=== PATIENT | male | born 1970 | race Caucasian/White ===

== ENCOUNTER 2017-03-22 16:32 | Emergency (ER) | payer SELFPAY ==
[~2017-03-22] VITALS: Ht 208.3 cm; Wt 153.2 kg
[~2017-03-22 16:32] MED LIST: ALBU0.8317 AEROSOL; ASPI-611 PO; CLIN300C86 PO; HYDR-4074 PO; LISI-126 PO; ONDA-55 PO; ORPH100T2 PO; TELM80TA4 PO
[2017-03-22 16:34] VITALS: Ht 208.3 cm; Wt 153.2 kg
--- OUTSIDE RECORDS SUMMARY | 2017-03-22 16:37 | XMS REPORT | Continuity of Care Document ---
Author Author [facility] LIVE Organization [facility] LIVE Address Unknown Phone Unavailable Support Name Relationship Address Phone ORIANA MCLAUGHLIN II, MD Caregiver [address] [place] [phone] NEHEMIAH PEREZ MD Caregiver [address] [place] [phone] SREEKANTH TADEO Next Of Kin [address] [id number] Insurance Providers Payer Name Policy Number Subscriber Name Relationship Workers Compensation [id number] Kevin Tadeo 20 Self Problems Medical Problems Problem Onset Date Status Hand pain Unknown Active Hand pain Unknown Active Medications Medication Dose Route Sig Days/Qty Instructions Order Date Discontinued Date Status Telmisartan 80 Mg PO DAILY 06/18/13 Active Lisinopril 20 Mg PO DAILY 06/18/13 Active Aspirin 81 Mg PO DAILY 06/18/13 Active Albuterol 2.5 Mg AEROSOL NEEDED 06/18/13 Active Social History Social History Problem Response Recorded Date/Time Smoking Status Current every day smoker 07/18/2014 7:33am Chewing Tobacco Status No 06/18/2013 6:15am Hx Substance Use No 07/18/2014 7:33am Hx Alcohol Use Y OCC 07/18/2014 7:33am Query Response Start Date Stop Date Smoking Status Current every day smoker Hospital Discharge Instructions No hospital discharge instructions. Plan of Care No plan of care. Functional Status Query Response Date Recorded Physical Hygiene Self July 18, 2014 7:33am Disabilities None July 18, 2014 7:33am Devices Used None July 18, 2014 7:33am Dressing Self July 18, 2014 7:33am Ambulation Self July 18, 2014 7:33am Diet Self July 18, 2014 7:33am Mental Status Alert Oriented July 18, 2014 8:06am Disabilities None July 18, 2014 7:33am Devices Used None July 18, 2014 7:33am Physical Hygiene Self July 18, 2014 7:33am Dressing Self July 18, 2014 7:33am Ambulation Self July 18, 2014 7:33am Diet Self July 18, 2014 7:33am Allergies, Adverse Reactions, Alerts Allergen Type Severity Reaction Status Last Updated Penicillin Allergy Unknown Active 06/18/13 Immunizations No immunization records. Vital Signs Acute Vital Signs Vital Response Date/Time Temperature (Fahrenheit) 97.8 deg F (96.8 - 99.1) Temperature (Calculated Celsius) 36.38563 degrees C (36.0 - 37.3) Pulse Rate (adult) 109 bpm (60 - 100) Respiratory Rate 20 breaths/min (10 - 20) O2 Sat by Pulse Oximetry 93 % (90 - 100) Blood Pressure 139/67 mm Hg Height 6 ft 10 in Weight 317 lb Body Mass Index 33.0 kg/m^2 Results Test Source Date Result Interp. Ref. Range Comments Alanine Aminotransferase (ALT/SGPT) June 06, 2011 5:28pm 32 U/L N 21- 72 Albumin June 06, 2011 5:28pm 5.1 G/DL H 3.5-5.0 Albumin/Globulin Ratio June 06, 2011 5:28pm 1.3 RATIO N 1.1-2.2 Alkaline Phosphatase June 06, 2011 5:28pm 96 U/L N 38-126 Anion Gap July 09, 2014 1:34pm 11 MEQ/L N 5-15 Aspartate Amino Transf (AST/SGOT) June 06, 2011 5:28pm 24 U/L N 17-59 BUN/Creatinine Ratio July 09, 2014 1:34pm 20 RATIO N 6-26 Basophils # (Auto) July 09, 2014 1:34pm 0.0 T/MM3 N 0-0.2 Basophils (%) (Auto) July 09, 2014 1:34pm 0.5 % N 0-2 Blood Urea Nitrogen July 09, 2014 1:34pm 22.0 MG/DL H 9-20 Calcium Level July 09, 2014 1:34pm 9.7 MG/DL N 8.4-10.2 Calculated Osmolality July 09, 2014 1:34pm 274 MOSM/KG N 261-280 Carbon Dioxide Level July 09, 2014 1:34pm 26 MEQ/L N 22-30 Chloride Level July 09, 2014 1:34pm 104 MEQ/L N 98-107 Creatinine July 09, 2014 1:34pm 1.1 MG/DL N 0.8-1.5 Eosinophils # (Auto) July 09, 2014 1:34pm 0.3 T/MM3 N 0-0.5 Eosinophils (%) (Auto) July 09, 2014 1:34pm 3.3 % N 0-4 Globulin June 06, 2011 5:28pm 4.0 G/DL H 2.4-3.6 Glucose Level July 09, 2014 1:34pm 92 MG/DL N 75-110 Hematocrit July 09, 2014 1:34pm 39.6 % L 41-53 Hemoglobin July 09, 2014 1:34pm 13.0 GM/DL L 13.5-17.5 Lymphocytes # (Auto) July 09, 2014 1:34pm 2.4 T/MM3 N 1-4.8 Lymphocytes (%) (Auto) July 09, 2014 1:34pm 28.2 % N 23-45 Mean Corpuscular Hemoglobin July 09, 2014 1:34pm 29.7 UUG N 26-34 Mean Corpuscular Hemoglobin Concent July 09, 2014 1:34pm 32.8 GM/DL N 31-37 Mean Corpuscular Volume July 09, 2014 1:34pm 90.4 UM3 N 80-100 Mean Platelet Volume July 09, 2014 1:34pm 10.5 UM3 N 9.4-12.4 Monocytes # (Auto) July 09, 2014 1:34pm 0.5 T/MM3 N 0-0.8 Monocytes (%) (Auto) July 09, 2014 1:34pm 5.3 % N 0-9.0 Neutrophils # (Auto) July 09, 2014 1:34pm 5.3 T/MM3 N 1.8-7.7 Neutrophils (%) (Auto) July 09, 2014 1:34pm 62.2 % N 33-66 Platelet Count July 09, 2014 1:34pm 205 T/MM3 N 130-400 Potassium Level July 09, 2014 1:34pm 4.4 MEQ/L N 3.6-5 Prostate Specific Antigen June 06, 2011 5:28pm 0.98 NG/ML N 0-4.0 RDW Standard Deviation July 09, 2014 1:34pm 46.3 FL N 36.9-50.2 Red Blood Count July 09, 2014 1:34pm 4.38 M/MM3 L 4.50-5.90 Sodium Level July 09, 2014 1:34pm 141 MEQ/L N 134-144 Thyroid Stimulating Hormone (TSH) June 06, 2011 5:28pm 2.88 MIU/L N 0.47-4.68 Total Bilirubin June 06, 2011 5:28pm 0.50 MG/DL N 0.20-1.30 Total Protein June 06, 2011 5:28pm 9.1 G/DL H 6.3-8.2 Urine Bacteria June 06, 2011 5:28pm 1+ H - Urine Bilirubin June 06, 2011 5:28pm Negative - Urine Blood June 06, 2011 5:28pm Negative - Urine Collection Type June 06, 2011 5:28pm Voided - Urine Color June 06, 2011 5:28pm Yellow - Urine Culture Indicated June 06, 2011 5:28pm Cult ordered & setup - Urine Glucose (UA) June 06, 2011 5:28pm Negative - Urine Ketones June 06, 2011 5:28pm Trace H - Urine Leukocyte Esterase June 06, 2011 5:28pm Negative - Urine Mucus June 06, 2011 5:28pm Present - Urine Nitrite June 06, 2011 5:28pm Negative - Urine Protein June 06, 2011 5:28pm Negative - Urine RBC June 06, 2011 5:28pm 1-3 /HPF - Urine Specific [place] June 06, 2011 5:28pm 1.025 - Urine Squamous Epithelial Cells June 06, 2011 5:28pm Many - Urine Turbidity June 06, 2011 5:28pm Clear - Urine Urobilinogen June 06, 2011 5:28pm Normal EU/DL - Urine WBC June 06, 2011 5:28pm 3-5 /HPF - Urine pH June 06, 2011 5:28pm 5.0 - White Blood Count July 09, 2014 1:34pm 8.6 T/MM3 N 4.5-11.0 Chemistry Specimen Hemolysis July 09, 2014 1:34pm < 15 0-25 0-25 : No Hemolysis.26-70: Slight Hemolysis - can falsely elevate K and Urine Protein. 71-285: Moderate Hemolysis - can falsely elevate K, Troponin I, CA 19-9, PTH, CSF GLucose, and Urine Protein, and can falsely decrease Phenytoin. 286-999: Gross Hemolysis - can falsely elevate K, Troponin I, CA 19-9, PTH, CSF Glucose, and Urine Protine, and can falsely decrease Phenytoin. Recommend specimen recollection. Lab Scanned Report July 09, 2014 7:27pm LAB TEST FORM REQUEST [id number] - Turbidity July 09, 2014 1:34pm < 20 0-20 Glomerular Filtration Rate Calc July 09, 2014 1:34pm 74 - Immature Granulocyte # (Auto) July 09, 2014 1:34pm 0.04 T/MM3 H 0.00-0.03 Immature Granulocyte % (Auto) July 09, 2014 1:34pm 0.5 % N 0.0-0.5 Icterus Index July 09, 2014 1:34pm < 2 0-7 Urine Culture Urine, Clean Catch Voided June 06, 2011 5:28pm Strep Agalactiae - (Group B) Name: KEVIN TADEO Unit #: [id number] : 1970 Sex: M Loc / Svc: [facility] DOS: 06/23/14 Signed Report #: [id number] DIAGNOSTIC IMAGING REPORT TYPE OF EXAM: MRI WRIST LEFT W/O CONTRAST Dictated By: ALEXANDREA FREEMAN MD INDICATION: ITS.REASON: 719.43 PAIN MRI WRIST LEFT W/O CONTRAST: Comparison: None Technique: Multiplanar multisequence MR imaging of the left wrist was performed without contrast. Findings: Senior Technical Trainer radiograph of the skull was performed to exclude a metallic foreign body within the orbits. No metallic foreign bodies are identified projecting over the orbits. Prior dental restorations. There is motion artifact present. The carpal tunnel appears normal. Median nerve is unremarkable. Flexor and extensor tendons are intact. There is edema within the distal scaphoid bone suggesting a nondisplaced fracture. A discrete fracture line is not clearly seen. The remainder of the bone marrow signal intensity is normal. Motion artifact limits most of the sequences. Triangular fibrocartilage appears grossly intact. Scapholunate interval is widened and the scapholunate ligament is probably torn although again motion artifact limits this evaluation. Lunotriquetral ligament appears intact. Impression: Probable tear of the scapholunate ligament with evidence of a nondisplaced fracture or bone contusion involving the distal pole of the scaphoid. . Procedures No known history of procedures. Encounters Encounter Location Date/Time Departed Emergency Room [facility] 07/18/14 7:29am Registered Clinic [facility] 07/09/14 1:17pm Registered Clinic [facility] 06/23/14 6:58am Recent Diagnosis
--- OUTSIDE RECORDS SUMMARY | 2017-03-22 16:37 | XMS REPORT | Continuity of Care Document ---
Author Author [facility] Organization [facility] Address Unknown Phone Unavailable Support Name Relationship Address Phone MARCIN FOWLER APRN Caregiver [address] [place], [place] [phone] Unavailable SREEKANTH TADEO Next Of Kin [address] [place] [address] Insurance Providers Guarantor Kevin Tadeo Address [facility] [place] [address] Email DENIED/NO PORTAL Payer Self Pay Subscriber's Name GusKevin Blount Relationship 18 Self Problems Active Problems Medical Problem Onset Date Status Asthma Unknown Chronic Cast discomfort Unknown Acute Chest pain, rule out acute myocardial infarction Unknown Acute Diaphoresis Unknown Acute HTN (hypertension) Unknown Chronic Near syncope Unknown Acute Right-sided chest pain Unknown Acute Syncope Unknown Acute Past Problems Medical Problem Onset Date Abscess of skin Unknown Cellulitis of left ankle Unknown Hand pain Unknown Spider bite Unknown Medications Current Home Medications Medication Dose Units Route Directions Days Qty Instructions Start Date Albuterol (Ventolin) 2.5 Mg/3 Ml Inha 2.5 Mg Aerosol Tx. As Needed 06/18/13 Aspirin 81 Mg Tablet 81 Mg Oral Daily 06/18/13 Clindamycin Hcl 300 Mg Capsule 300 Mg Oral Four Times Daily 10 Days [address] Facundo [employer] [facility] [address] [facility] [phone] 07/13/16 Hydrocodone/Apap 7.5/325 Mg ([place] 7.5-325 Tablet) 1 Each Tablet 1 Tab Oral Every 6 Hours as needed for Pain 40 Tablet 01/28/16 Lisinopril 20 Mg Tablet 20 Mg Oral Daily 06/18/13 Ondansetron Hcl 4 Mg Tablet 4 Mg Oral Q6h/0300,0900,1500,2100 as needed for Nausea 30 Tablet 01/28/16 Orphenadrine Citrate 100 Mg Tablet.er 100 Mg Oral Every 12 Hours as needed for Spasms 14 Tablet 01/28/16 Telmisartan (Micardis) 80 Mg Tablet 80 Mg Oral Daily 06/18/13 Past Home Medications Medication Directions Ordered Status Acid Reflux Med , 01/27/16 Discontinued Antibiotic , 01/27/16 Discontinued Social History Social History Problem Response Recorded Date/Time Onset Date Status Chewing Tobacco Status No 06/18/2013 6:15am Not Applicable Not Applicable Hx Substance Use No 05/27/2016 12:06am Not Applicable Not Applicable Hx Alcohol Use Y OCC 05/27/2016 12:06am Not Applicable Not Applicable Has the pt used tobacco in the last 12 months No 01/28/2016 12:04am Not Applicable Not Applicable Tobacco Usage smoke 01/28/2016 8:47am Not Applicable Not Applicable Hospital Discharge Instructions Current inpatient/outpatient. Discharge instructions are currently unavailable. Plan of Care Current inpatient/outpatient. The plan of care is currently unavailable Functional Status No functional status results. Allergies, Adverse Reactions, Alerts Allergen Type Severity Reaction Status Last Updated Penicillin Allergy Unknown Active 07/13/16 Immunizations Query Response on File Recorded Date/Time Hx Influenza Vaccination No 01/28/16 12:04am Hx Pneumococcal Vaccination No 01/28/16 12:04am Hx Influenza Vaccination No 01/28/16 12:04am Vital Signs Acute Vital Signs Vital Response Date/Time Temperature (Fahrenheit) 97.9 deg F (96.8 - 99.1) 07/13/2016 5:18pm Temperature (Calculated Celsius) 36.26710 degrees C (36.0 - 37.3) 07/13/2016 5:18pm Pulse Rate (adult) 110 bpm (60 - 100) 07/13/2016 5:18pm Respiratory Rate 20 breaths/min (10 - 20) 05/27/2016 12:01am O2 Sat by Pulse Oximetry 96 % (90 - 100) 07/13/2016 5:18pm Blood Pressure 140/88 mm Hg 07/13/2016 5:18pm Height (Feet) 6 feet 05/27/2016 12:01am Height (Inches) 10.00 inches 05/27/2016 12:01am Weight (Kilograms) 146.600 kg 07/13/2016 5:18pm Body Mass Index (BMI) 33.0 05/27/2016 12:01am Results No known relevant diagnostic tests, laboratory data and/or discharge summary. Procedures No known history of procedures. Encounters Encounter Location Arrival/Admit Date Discharge/Depart Date Attending Provider Registered Clinic [facility] 07/13/16 6:47pm MARCIN FOWLER APRN Departed Emergency Room [facility] 07/13/16 5:11pm 07/13/16 6: 20pm MARCIN FOWLER APRN Departed Emergency Room [facility] 05/26/16 11:53pm 05/27/16 12: 37am ZIGGY MARADIAGA MD
[2017-03-22] MEDS ORDERED: NORMAL SALINE 1,000 ML IV ONE (16:47)
[2017-03-22 16:58] LABS: BASOPHILS # (AUTO) 0.1 T/MM3 (0-0.2); BASOPHILS % (AUTO) 0.5 % (0-2); EOSINOPHILS # (AUTO) 0.2 T/MM3 (0-0.5); EOSINOPHILS % (AUTO) 1.3 % (0-4); HCT - HEMATOCRIT 45.5 % (41-53); HGB - HEMOGLOBIN 15.5 GM/DL (13.5-17.5); IMMATURE GRANULOCYTE # (AUTO) 0.04 T/MM3 (0.00-0.03); IMMATURE GRANULOCYTE % (AUTO) 0.3 % (0.0-0.5); LYMPHOCYTES # (AUTO) 3.1 T/MM3 (1-4.8); LYMPHOCYTES % (AUTO) 23.7 % (23-45); MEAN CORPUSCULAR HGB 29.9 UUG (26-34); MEAN CORPUSCULAR HGB CONC(MCHC 34.1 GM/DL (31-37); MEAN CORPUSCULAR VOLUME 87.8 UM3 (80-100); MEAN PLATELET VOLUME 10.8 UM3 (9.4-12.4); MONOCYTES # (AUTO) 0.9 T/MM3 (0-0.8); MONOCYTES % (AUTO) 6.6 % (0-9.0); NEUTROPHILS #(AUTO)-ABSOLUTE 8.7 T/MM3 (1.8-7.7); NEUTROPHILS % (AUTO) 67.6 % (33-66); RED BLOOD COUNT 5.18 M/MM3 (4.50-5.90); WBC - WHITE BLOOD COUNT 12.9 T/MM3 (4.5-11.0)
[2017-03-22] MEDS ORDERED: DILTIAZEM 25mg/5ml INJECTION IV ONE ×2 (17:00→17:45)
[2017-03-22] MEDS ORDERED: NITROGLYCERIN 0.4 MG SUBLINGUAL TABLET SL PRN (17:00)
[2017-03-22] MEDS ORDERED: ASPIRIN 81 MG CHEWABLE TABLET PO ONE (17:00)
--- OUTSIDE RECORDS SUMMARY | 2017-03-22 17:01 | XMS REPORT | Continuity of Care Document ---
Author Author [facility] LIVE Organization [facility] LIVE Address Unknown Phone Unavailable Support Name Relationship Address Phone ORIANA MCLAUGHLIN II, MD Caregiver [address] [facility] [facility] [phone] NEHEMIAH PEREZ MD Caregiver [address] [place] [phone] SREEKANTH TADEO Next Of Kin [address] [id number] Insurance Providers Payer Name Policy Number Subscriber Name Relationship Workers Compensation [id number] Kevin Tadeo 20 Self Problems Medical Problems [...] F (96.8 - 99.1) Temperature (Calculated Celsius) 36.24012 degrees C (36.0 - 37.3) Pulse Rate [...] 2011 5:28pm 1-3 /HPF - Urine Specific [place] June 06, 2011 5:28pm 1.025 - Urine [...] 09, 2014 7:27pm LAB TEST FORM REQUEST [id number] - Turbidity July 09, 2014 1:34pm < [...] 5:28pm Strep Agalactiae - (Group B) Name: EKVIN TADEO Unit #: [id number] : 1970 Sex: M Loc / Svc: [facility] DOS: 06/23/14 Signed Report #: [id number] DIAGNOSTIC IMAGING REPORT TYPE OF EXAM: MRI WRIST LEFT W/O CONTRAST Dictated By: ALEXANDREA FREEMAN MD INDICATION: ITS.REASON: 719.43 PAIN MRI WRIST LEFT W/O CONTRAST: Comparison: None Technique: Multiplanar multisequence MR imaging of the left wrist was performed without contrast. Findings: Load Checker radiograph of the skull was performed to [...] Encounters Encounter Location Date/Time Departed Emergency Room [facility] 07/18/14 7:29am Registered Clinic [facility] 07/09/14 1:17pm Registered Clinic [facility] 06/23/14 6:58am Recent Diagnosis
--- NOTE | 2017-03-22 17:05 | ERPDOC ---
Departure Disposition Decision Date: March 22, 2017 Disposition Decision Time: 19:18 () Disposition: 01 DISCHARGED HOME, SELF-CARE Impression Impression (ASHOK NI MD) Impression: Primary Impression: Dehydration Severity: Moderate () Condition: Improved Seen By: Physician only (MARCH,KELLY ) Referrals: YOUR PHYSICIAN 3 Days Patient Instructions: Dehydration (ED) Problems/Meds/Labs Reviewed?: Yes Medications reviewed and manag: Yes () Additional Instructions: You are dehydrated. Drink plenty of fluids and follow up with your doctor in the next few days. Follow up care ordered?: Yes () HPI - Cardiac General Chief Complaint: Chest Pain Stated Complaint: CP Time Seen by Provider: 16:40 (ASHOK NI MD) HPI - Cardiac General Initial Comments Physician present at bedside is patient was brought in to the emergency department. Pulse was 167, patient was reading 35-40 times per minute with oxygen sat 100%. He complained of chest pain and right leg numbness. In fact when trying to get out of the car he was unable to stand on his right leg and fell to the ground. This is a new phenomenon for him, he has not had right leg numbness before. 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 IV was started, patient was given Cardizem 10 mg which brought in from a rate of 167 beats per minute to a rate of approximately 10 8 bpm. Sure state consistent 120 systolic. MAP of 86. Breathing slowed and he was much more comfortable. Workup is pending. (ASHOK NI MD) Allergies: Coded Allergies: Penicillins (Verified Allergy, Unknown, 07/13/16) Past History Patient Surgical History Left leg tendon repair (ASHOK NI MD) Past Medical History Metabolic: hypertension Hx Echocardiogram: No Respiratory: asthma (ASHOK NI MD) Surgical History Joint: hand (ASHOK NI MD) Family History Family PMH: FOUND: other (ASHOK NI MD) Vaccines Hx Influenza Vaccination: No Hx Pneumococcal Vaccination: No (ASHOK NI MD) Social History Smoking Status: Current every day smoker Substance Use Type: does not use (ASHOK NI MD) Record Review Pertinent history updated: Yes (ASHOK NI MD) Review of Systems Cardiovascular Cardiac: see HPI Rhythm/Rate: see HPI (ASHOK NI MD) Pulmonary Respiratory: see HPI (ASHOK NI MD) All other Systems All Other Systems: Reviewed and Negative (ASHOK NI MD) Physical Exam General General Nourishment: well nourished, well developed, appears stated age Distress Description Acutely short of breath, tachycardic. Also unable to lay on right side due to pain (ASHOK NI MD) Vitals and Pain First Documented Vital Signs Date Time Temp Pulse Resp B/P Pulse Ox O2 Delivery O2 Flow Rate FiO2 03/22/17 17:16 127/85 03/22/17 17:17 115 45 92 Room Air ( M DO) Vitals and Pain Weight: Kilograms: Height (feet): 6 Height (inches): 10.00 Triage Pain Scale: (ASHOK NI MD) Normal Exams: Head: Normocephalic w/o trauma Eyes: Pupils are PERRLA w/ EOMI Neck: Full range of motion Abdomen: Bowel sounds positive (ASHOK NI MD) Respiratory (brief) Comments Wheezing heard bilateral, very rapid breathing. (ASHOK NI MD) Cardiovascular (brief) Comments Tachycardic, no murmur heard (ASHOK NI MD) Differential Diagnoses Considering: Acute WA, Anxiety/Panic, Aortic Dissection, Atrial Fibrillation, Hyperventilation, Pulmonary Edema, Pulmonary Embolus, Ventricular Tachycardia (ASHOK NI MD) Progress Results/Orders Orders Procedure Category Date Status Time Cbc W/Auto LAB 03/22/17 Complete Diff-Reflex Manual 16:47 Cmp - Comprehensive LAB 03/22/17 Complete Metabolic 16:47 Probnp LAB 03/22/17 Complete 16:47 Troponin I W LAB 03/22/17 Complete Hemolysis Index 16:47 INR LAB 03/22/17 Complete 16:47 D-Dimer LAB 03/22/17 Complete 16:47 Tsh - Thyroid Stim LAB 03/22/17 Complete Hormone 16:47 Magnesium LAB 03/22/17 Complete 16:47 EKG EKG 03/22/17 Logged 16:47 Chest 1 View RAD 03/22/17 Resulted 16:47 Iv Lock (Ed Only) EDM 03/22/17 Transmitted 16:47 Normal Saline (Normal PHA 03/22/17 Complete Saline Iv) 16:47 Aspirin (Asa) PHA 03/22/17 Complete 17:00 Nitroglycerin PHA 03/22/17 In Process (Nitrostat) 17:00 Diltiazem (Cardizem*) PHA 03/22/17 Complete Iv Bolus (Cardizem 17:00 Ck - Cpk LAB 03/22/17 Complete Ckmb - Ams LAB 03/22/17 Complete 16:47 Diltiazem (Cardizem*) PHA 03/22/17 Complete Iv Bolus (Cardizem 17:45 Drug Screen LAB 03/22/17 Complete Urine-Test At [facility] 18:20 UA, LAB 03/22/17 Complete Dip&Micro(Complete) & 18:11 ( M DO) Lab Results Laboratory Tests Test 03/22/17 16:51 03/22/17 18:11 03/22/17 18:49 White Blood Count 12.9T/MM3 Red Blood Count 5.18M/MM3 Hemoglobin 15.5GM/DL Hematocrit 45.5% Mean Corpuscular Volume 87.8UM3 Mean Corpuscular Hemoglobin 29.9UUG Mean Corpuscular Hemoglobin Concent 34.1GM/DL RDW Standard Deviation 46.5FL Platelet Count 212T/MM3 Mean Platelet Volume 10.8UM3 Immature Granulocyte % (Auto) 0.3% Neutrophils (%) (Auto) 67.6% Lymphocytes (%) (Auto) 23.7% Monocytes (%) (Auto) 6.6% Eosinophils (%) (Auto) 1.3% Basophils (%) (Auto) 0.5% Absolute Immature Granulocyte (auto 0.04T/MM3 Absolute Neutrophils (auto) 8.7T/MM3 Absolute Lymphocytes (auto) 3.1T/MM3 Absolute Monocytes (auto) 0.9T/MM3 Absolute Eosinophils (auto) 0.2T/MM3 Absolute Basophils (auto) 0.1T/MM3 Prothromb Time International Ratio 1.04 D-Dimer < 150NG/ML Turbidity < 20 Sodium Level 145MEQ/L Potassium Level 4.2MEQ/L Chloride Level 107MEQ/L Carbon Dioxide Level 21MEQ/L Anion Gap 17MEQ/L Blood Urea Nitrogen 27.0MG/DL Creatinine 1.7MG/DL Glomerular Filtration Rate Calc 44 BUN/Creatinine Ratio 16RATIO Glucose Level 122MG/DL Calculated Osmolality 285MOSM/KG Calcium Level 9.9MG/DL Magnesium Level 2.2MG/DL Total Bilirubin 0.60MG/DL Icterus Index < 2 Aspartate Amino Transf (AST/SGOT) 32U/L Alanine Aminotransferase (ALT/SGPT) 66U/L Alkaline Phosphatase 105U/L Total Creatine Kinase 282U/L Creatine Kinase MB 2.5ng/mL Troponin I < 0.012ng/ml OA-Ofg-O-Type Natriuretic Peptide 29PG/ML Total Protein 8.3G/DL Albumin 4.9G/DL Globulin 3.4G/DL Albumin/Globulin Ratio 1.4RATIO Thyroid Stimulating Hormone (TSH) 1.65MIU/L Chemistry Specimen Hemolysis < 15 Urine Collection Type Cleancatch-midstream Urine Color Yellow Urine Turbidity Clear Urine pH 6.5 Urine Specific [place] 1.015 Urine Protein 2+ Urine Glucose (UA) Negative Urine Ketones Negative Urine Blood Trace-intact Urine Nitrite Negative Urine Bilirubin Negative Urine Urobilinogen 0.2EU/DL Urine Leukocyte Esterase Negative Urine RBC 0-1/HPF Urine WBC 1-3/HPF Urine Squamous Epithelial Cells 5-10 Urine Bacteria Trace Urine Hyaline Casts 5-10/LPF Urine Culture Indicated Cult not indicated Urine Opiates Screen NegativeNG/ML Urine Oxycodone Screen NegativeNG/ML Urine Methadone Screen NegativeNG/ML Urine Propoxyphene Screen NegativeNG/ML Urine Barbiturates Screen NegativeNG/ML Urine Tricyclic Antidepressants NegativeNG/ML Urine Phencyclidine Screen NegativeNG/ML Urine Amphetamines Screen NegativeNG/ML Urine Methamphetamines Screen NegativeNG/ML Urine Benzodiazepines Screen NegativeNG/ML Urine Cocaine Screen NegativeNG/ML Urine Cannabinoids Screen PositiveNG/ML Urine Drug Screen Confirmation Sent out Urine Drug Screen Information Pending ( M DO) Medications Current ED Medications Sodium Chloride (Normal Saline IV) 1,000 ml @ 1,000 mls/hr Q1H ONCE IV Last administered on 03/22/17 17:49; Start 03/22/17 at 16:47; Stop 03/22/17 at 17:46 ; Status DC Aspirin (ASA) 324 mg O ONCE PO Last administered on 03/22/17 16:45; Start at 17:00; Stop 03/22/17 at 17:01; Status DC Nitroglycerin (Nitrostat) 0.4 mg Q5MIN PRN SL CHEST PAIN; Start 03/22/17 at 17: 00 Diltiazem HCl (Cardizem) 10 mg O ONCE IV Last administered on 03/22/17t 17:50 ; Start 03/22/17 at 17:00; Stop 03/22/17 at 17:01; Status DC Diltiazem HCl (Cardizem) 10 mg O ONCE IV Last administered on 03/22/17t 16:50 ; Start 03/22/17 at 17:45; Stop 03/22/17 at 17:46; Status DC (MARCH,KELLY Rosario DO) Progress Progress Physician present at bedside is patient was brought in to the emergency department. Pulse was 167, patient was reading 35-40 times per minute with oxygen sat 100%. He complained of chest pain and right leg numbness. In fact when trying to get out of the car he was unable to stand on his right leg and fell to the ground. This is a new phenomenon for him, he has not had right leg numbness before. 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 IV was started, patient was given Cardizem 10 mg which brought in from a rate of 167 beats per minute to a rate of approximately 10 8 bpm. Sure state consistent 120 systolic. MAP of 86. Breathing slowed and he was much more comfortable. Workup is pending. Right leg pain and weakness resolved with the IV fluids. This is likely due to cramping from dehydration. Other vitals and responses are also appropriate with dehydration being treated with IV fluids. He is feeling considerably better. UA is also consistent with dehydration. (ASHOK NI MD) ASHOK NI MD March 22, 2017 17:05 KELLY HAIRSTON DO March 22, 2017 19:20
[2017-03-22 17:07] LABS: INR 1.04 (0.77-1.03); PROTHROMBIN TIME 11.4 SEC (9.48-12.52)
--- NOTE | 2017-03-22 17:08 | DI ---
Indication: ITS.REASON: dyspnea,chest pain PROCEDURE: CHEST 1 VIEW: Encounter: Initial Comparison: January 27, 2016 FINDINGS: The lungs are clear. There is no abnormal airspace opacity, pleural effusion or pneumothorax identified. The heart size, pulmonary vasculature and mediastinum are within normal limits. No significant skeletal abnormality is seen. IMPRESSION: No acute cardiopulmonary abnormality. .
[2017-03-22 17:19] LABS: ALBUMIN 4.9 G/DL (3.5-5.0); ALBUMIN/GLOBULIN RATIO 1.4 RATIO (1.1-2.2); ALKALINE PHOSPHATASE 105 U/L (38-126); ALT (SGPT) 66 U/L (21-72); ANION GAP 17 MEQ/L (5-15); AST (SGOT) 32 U/L (17-59); BUN/CREATININE RATIO 16 RATIO (6-26); CALCIUM 9.9 MG/DL (8.4-10.2); CHLORIDE 107 MEQ/L (98-107); CO2 - CARBON DIOXIDE 21 MEQ/L (22-30); CREATININE 1.7 MG/DL (0.8-1.5); GLOMERULAR FILTRATION RATE 44; GLUCOSE 122 MG/DL (75-110); MAGNESIUM 2.2 MG/DL (1.6-2.3); POTASSIUM 4.2 MEQ/L (3.6-5); SODIUM 145 MEQ/L (134-144); TOTAL PROTEIN 8.3 G/DL (6.3-8.2)
[2017-03-22] MEDS ORDERED: ALBU18HF2 ORAL INH (17:32)
[2017-03-22] MEDS ORDERED: AMLO5TAB2 PO (17:34)
[2017-03-22] MEDS ORDERED: MONT10TA25 PO (17:34)
[2017-03-22] MEDS ORDERED: MELO-267 PO (17:34)
[2017-03-22] MEDS ORDERED: AMIT25TA9 PO (17:34)
[2017-03-22] MEDS ORDERED: IBUP-1724 PO (17:36)
[2017-03-22] MEDS ORDERED: LISI1TAB11 PO (17:36)
[2017-03-22] MEDS ORDERED: OMEP-122 PO (17:36)
[2017-03-22 17:49] LABS: THYROID STIM HORMONE-TSH 1.65 MIU/L (0.47-4.68)
[2017-03-22 17:58] LABS: PROBNP 29 PG/ML (0-175)
[2017-03-22 18:23] LABS: BLOOD, URINE TRACE-INTACT (NEGATIVE); COLOR,URINE YELLOW (YELLOW); LEUKOCYTE ESTERASE ,URINE NEGATIVE (NEGATIVE); NITRITE,URINE NEGATIVE (NEGATIVE); UROBILINOGEN,URINE 0.2 EU/DL (NORMAL)
[2017-03-22 18:52] LABS: BACTERIA,URINE TRACE (NEGATIVE); RBC,URINE 0-1 /HPF (0-3)
--- NOTE | 2017-03-22 19:05 | NUR ---
DR NI IN WITH PT
[2017-03-22 19:08] LABS: AMPHETAMINE SCREEN,URINE NEGATIVE; BARBITURATE SCREEN,URINE NEGATIVE; BENZODIAZEPINES SCREEN,URINE NEGATIVE; CANNABINOID SCREEN,URINE POSITIVE; COCAINE SCREEN,URINE NEGATIVE; METHADONE SCREEN, URINE NEGATIVE; METHAMPHETAMINE SCREEN, URINE NEGATIVE; OPIATE SCREEN,URINE NEGATIVE; PHENCYCLIDINE SCREEN,URINE NEGATIVE; TRICYCLIC ANTIDEPRESSANT,URINE NEGATIVE
[2017-03-22 19:40] VITALS: BP 140/77; PULSE 90; RESP 18; O2SAT 98
== END 2017-03-22 19:40 | disposition home or self-care (01) ==
LOC: ED 16:32
DX: E86.0 Dehydration (principal); W18.39XA Other fall on same level, initial encounter; Y93.9 Activity, unspecified; Y92.9 Unspecified place or not applicable; Y99.8 Other external cause status
CPT/HCPCS: 80053; 80306; 81001; 82550; 82553; 83735; 83880; 84443; 84484; 85025; 85379; 85610; 93005